=== PATIENT | male | born 1980 | race Hispanic/Latino ===

== ENCOUNTER 2023-02-10 01:04 | Emergency (ER) | payer OTHER ==
[~2023-02-10] VITALS: Ht 188 cm; Wt 94.3 kg
[2023-02-10 01:29] LABS: BASOPHILS 0.3 % (0-2); HEMATOCRIT 49.6 % (35.0-50.0); HEMOGLOBIN 16.9 g/dL (12.0-18.0); MCV 94.1 fl (81-99); MONOCYTES 7.7 % (0-12); PLATELET COUNT 255 K/uL (140-440); RBC 5.27 M/ul (4.3-5.7); RDW 13.7 (10.5-15.0)
[2023-02-10 01:54] LABS: ALBUMIN 3.7 g/dL (3.4-5.0); ALCOHOL, MEDICAL <3 ng/dL (<3); ALKALINE PHOSPHATASE 77 U/L (46-116); ALT (SGPT) 75 U/L (14-59); ANION GAP 13.7 (7-21); AST (SGOT) 38 U/L (15-37); BILIRUBIN, TOTAL 0.3 ng/dL (0.2-1.0); BUN/CREATININE RATIO 8.84 (6.0-28.6); CARBON DIOXIDE 26 mmol/L (21-32); CHLORIDE 103 mmol/L (98-107); CREATININE, SERUM 1.13 mg/dL (0.70-1.30); GLOMERULAR FILTRATION RATE,EST 84 mL/min (>60); POTASSIUM 3.7 mmol/L (3.5-5.1); PROTEIN, TOTAL 7.4 g/dL (6.4-8.2); UREA NITROGEN 10 mg/dL (7-18)
[2023-02-10 02:05] LABS: ABO O; ANTIBODY SCREEN NEGATIVE; RH POSITIVE
[2023-02-10] MEDS ORDERED: HYDROCODON-ACE1 EA10 PO ×4 (04:58→06:55)
[2023-02-10 05:20] VITALS: BP 144/99
== END 2023-02-10 05:32 | disposition home or self-care (01) ==
LOC: ED 01:04
PROVIDERS: Family Medicine
DX: S42.252A Displaced fracture of greater tuberosity of left humerus, initial encounter for closed fracture (principal); V68.5XXA Driver of heavy transport vehicle injured in noncollision transport accident in traffic accident, initial encounter
CPT/HCPCS: 31500; 36415; 70450; 72125; 73030; 80053; 80307; 85025; 86850; 86900; 86901; 90715; 94799; A9270; G0480; J2405; J2704; J3010; J7121